=== PATIENT | female | born 1945 | race Caucasian/White ===

== ENCOUNTER → 2020-07-25 | Outpatient (CLI) | payer OTHER, BC ==
[~2020-07-25] VITALS: Ht 162.6 cm; Wt 59.0 kg
[~2020-07-25] MED LIST: ALDACTONE100 MG PO; CALCIUM500 MG PO; FLONASE 0.05%50 MCG NARES; NORVASC5 MG PO; RED YEAST RICE600 M1 PO; ROGAINE60 ML TOP; ROPINIROLE HCL0.5 MG PO
[2020-07-25 13:16] VITALS: BP 137/65
--- NOTE | 2020-07-25 13:31 | NUR ---
Pain Clinic Assessment: 1. History of Osteoarthritis: Not Applicable History of Rheumatoid Arthritis: Not Applicable 2. Height: 5 ft. 4 in. 162.6 cm. Weight: 130.0 lb. oz. 58.968 kg. Patient's BMI: 22.3 3. Vital Signs: BP: 137/65 Pulse: 94 Resp: 16 Temp: 02 Sat: 99 ECG Mon: 4. Pain Intensity: 5-6 5. Fall Risk: Dizziness: N Needs help standing or walking: N Fallen in the last 3 months: N Fall risk comments: 6. Patient on Blood Thinner: None 7. History of Hypertension: Y 8. Opioid Therapy greater than 6 weeks: Opiate Contract Signed: 9. Risk Assessment Tool Provided: LOW-0 10. Functional Assessment Tool: 11. Recreational Drug Use: Never Drug Type: Tobacco Use: Never Smoker Tobacco Type: Amount or Packs/day: How Many Years: Alcohol Use: No Frequency: Quant:
== END ==
LOC: PAIN 07-07 13:38
PROVIDERS: ATTEND Anesthesiology Pain Medicine
DX: M54.5 Low back pain (principal); G89.29 Other chronic pain; M25.551 Pain in right hip; M25.552 Pain in left hip; M53.3 Sacrococcygeal disorders, not elsewhere classified; J45.909 Unspecified asthma, uncomplicated; I10 Essential (primary) hypertension; G25.81 Restless legs syndrome; Z88.8 Allergy status to other drugs, medicaments and biological substances; Z79.899 Other long term (current) drug therapy

== ENCOUNTER → 2020-08-01 | Outpatient (CLI) | payer OTHER, BC ==
[~2020-08-01] VITALS: Ht 160 cm; Wt 59.7 kg
[~2020-08-01] MED LIST changes: +ACETAMINOPHEN325 M1 PO; +ADVIL200 M1 PO
[2020-08-01 10:56] VITALS: BP 128/61
--- NOTE | 2020-08-01 11:11 | NUR ---
Pain Clinic Assessment: 1. History of Osteoarthritis: Not Applicable History of Rheumatoid Arthritis: Not Applicable 2. Height: 5 ft. 3 in. 160.0 cm. Weight: 131.6 lb. oz. 59.693 kg. Patient's BMI: 23.3 3. Vital Signs: BP: 128/61 Pulse: 96 Resp: 14 Temp: 02 Sat: 99 ECG Mon: 4. Pain Intensity: 0-1 5. Fall Risk: Dizziness: Y Needs help standing or walking: N Fallen in the last 3 months: N Fall risk comments: 6. Patient on Blood Thinner: None 7. History of Hypertension: Y 8. Opioid Therapy greater than 6 weeks: N Opiate Contract Signed: 9. Risk Assessment Tool Provided: LOW-0 10. Functional Assessment Tool: 11. Recreational Drug Use: Never Drug Type: Tobacco Use: Never Smoker Tobacco Type: Amount or Packs/day: How Many Years: Alcohol Use: No Frequency: Quant:
== END | disposition home or self-care (01) ==
LOC: PAIN
PROVIDERS: ATTEND Anesthesiology Pain Medicine
DX: M53.3 Sacrococcygeal disorders, not elsewhere classified (principal); G89.29 Other chronic pain; I10 Essential (primary) hypertension; Z88.8 Allergy status to other drugs, medicaments and biological substances; Z98.890 Other specified postprocedural states; Z79.899 Other long term (current) drug therapy